=== PATIENT | female | born 1985 | race Caucasian/White ===

== ENCOUNTER 2021-01-06 16:22 | Outpatient (REF) | payer BC, SELFPAY ==
[2021-01-06 20:43] LABS: Abs Immature Grans 0.04 10^3/uL (0.0-0.06); Absolute Basophil Count 0.03 10^3/uL (0.0-0.2); Absolute Eosinophil Count 0.06 10^3/uL (0.0-0.7); Absolute Lymphocyte Count 0.91 10^3/uL (1.2-3.4); Absolute Monocyte Count 0.82 10^3/uL (0.1-0.8); Absolute Neutrophil Count 10.81 10^3/uL (1.2-6.7); Basophils % 0.2; Eosinophils % 0.5; HCT 36.9 % (36.0-46.0); HGB 12.3 g/dL (11.2-15.7); Immature Grans % 0.3; Lymphocytes % 7.2; MCH 30.8 pg (27.0-33.0); MCHC 33.3 % (32.0-36.0); MCV 92.3 fL (80-95); MPV 12.2 fL (8.0-11.0); Monocytes % 6.5; Neutrophils % 85.3; Nucleated RBC 0 %; Platelet Count 201 10^3/uL (130-400); RDW-SD 43.9 fL; WBC 12.67 10^3/uL (4.4-10.8)
[2021-01-06 20:48] LABS: ESR 38 mm/hr (0-20)
[2021-01-06 21:04] LABS: ALT 18 U/L (14-59); AST 11 U/L (15-37); Albumin 3.6 g/dL (3.4-5.0); Alkaline Phosphatase 76 U/L (46-116); Anion Gap 8.3 mmol/L (3-11); BUN 13 mg/dL (7-18); Bilirubin, Total 0.6 mg/dL (0.2-1.0); CO2 27.7 mmol/L (21.0-32.0); CREATININE 0.8 mg/dL (0.55-1.02); Calcium 9.5 mg/dL (8.5-10.1); Chloride 102 mmol/L (98-107); Glucose 108 mg/dL (74-106); Potassium 4.3 mmol/L (3.5-5.1); Sodium 138 mmol/L (136-145); Total Protein 7.6 g/dL (6.4-8.2)
== END 2021-01-06 16:23 | disposition home or self-care (01) ==
LOC: LBN 16:22
PROVIDERS: Visit Provider Family Medicine
DX: R19.7 Diarrhea, unspecified (principal); A68.9 Relapsing fever, unspecified
CPT/HCPCS: 80053; 85652; 85025

== ENCOUNTER 2021-04-27 03:33 | Outpatient (CLI) | payer BC, SELFPAY ==
[2021-04-27 17:30] LABS: Abs Immature Grans 0.02 10^3/uL (0.0-0.06); Absolute Basophil Count 0.03 10^3/uL (0.0-0.2); Absolute Eosinophil Count 0.12 10^3/uL (0.0-0.7); Absolute Lymphocyte Count 2.63 10^3/uL (1.2-3.4); Absolute Monocyte Count 0.52 10^3/uL (0.1-0.8); Absolute Neutrophil Count 6.68 10^3/uL (1.2-6.7); Basophils % 0.3; Eosinophils % 1.2; HCT 43.2 % (36.0-46.0); HGB 14.9 g/dL (11.2-15.7); Immature Grans % 0.2; Lymphocytes % 26.3; MCH 31.2 pg (27.0-33.0); MCHC 34.5 % (32.0-36.0); MCV 90.4 fL (80-95); MPV 10.6 fL (8.0-11.0); Monocytes % 5.2; Neutrophils % 66.8; Nucleated RBC 0 %; Platelet Count 254 10^3/uL (130-400); RBC 4.78 10^6/uL (3.93-5.22); RDW 12.6 % (11.7-14.6); RDW-SD 41.8 fL
[2021-04-27 19:53] LABS: ALT 22 U/L (14-59); AST 13 U/L (15-37); Albumin 4.2 g/dL (3.4-5.0); Alkaline Phosphatase 90 U/L (46-116); Anion Gap 11.2 mmol/L (3-11); BUN 14 mg/dL (7-18); Bilirubin, Total 0.6 mg/dL (0.2-1.0); CO2 27.8 mmol/L (21.0-32.0); CREATININE 0.8 mg/dL (0.55-1.02); Calcium 9.5 mg/dL (8.5-10.1); Chloride 102 mmol/L (98-107); Glucose 110 mg/dL (74-106); Potassium 3.5 mmol/L (3.5-5.1); Sodium 141 mmol/L (136-145); TSH 1.82 uIU/mL (0.36-3.74); Total Protein 7.7 g/dL (6.4-8.2)
== END 2021-04-27 03:34 | disposition home or self-care (01) ==
LOC: LBO 03:33
PROVIDERS: Visit Provider Naturopath
DX: C56.9 Malignant neoplasm of unspecified ovary (principal)
CPT/HCPCS: 36415; 80053; 84443; 85025

== ENCOUNTER 2022-08-04 00:18 | Outpatient (CLI) | payer BC, MEDICAID, SELFPAY ==
--- NOTE | 2022-08-04 13:45 | DI.MRI_ITS ---
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 CONTRAST MATERIAL: IV Contrast: 20 mL of Dotarem contrast administered. FINDINGS: Liver: Unremarkable. Pancreas: Unremarkable. Gallbladder and Bile Ducts: Unremarkable. Adrenals: Unremarkable. Kidneys: Unremarkable. Spleen: There again seen several well-circumscribed T2 hyperintense lesions in the spleen which are l ikely cysts. Bowel: There is diverticulosis in the colon. Aorta: Unremarkable. Soft Tissues: Since the prior examination the patient appears of undergone prior anterior abdominal w all surgery with resection of the right rectus abdominus muscle and intramuscular mass. There is res ultant laxity of the right anterior abdominal wall. There is bowel seen within the anterior abdomina l wall bulge but there is no evidence of bowel obstruction. There is a 0.6 cm round enhancing nodule posterior to the left rectus abdominus muscle. It is in the similar area to the 2nd lesion seen on the MRI from 10/14/2021 although it is decreased in size. This may represent recurrent or residual di sease. No other suspicious enhancing lesions are identified. Bone: Unremarkable. Lymph Nodes: Unremarkable. IMPRESSION: 1. Interval right rectus abdominus muscle/mass resection. No evidence of a recurrent mass in the reg ion. 2. 0.6 cm round enhancing nodule posterior to the left rectus abdominus muscle. (Series [id number], image 63). This may represent residual or recurrent disease stemming from the 2nd lesions seen in September 2408 16. 3. Stable splenic cysts and colonic diverticulosis. DATA REPOSITORY:
[2022-08-04 14:12] LABS: Abs Immature Grans 0.02 10^3/uL (0.0-0.06); Absolute Basophil Count 0.04 10^3/uL (0.0-0.2); Absolute Eosinophil Count 0.12 10^3/uL (0.0-0.7); Absolute Lymphocyte Count 1.95 10^3/uL (1.2-3.4); Absolute Neutrophil Count 5.69 10^3/uL (1.2-6.7); Basophils % 0.5; Eosinophils % 1.5; HCT 41.5 % (36.0-46.0); Immature Grans % 0.2; Lymphocytes % 23.7; MCHC 33.7 % (32.0-36.0); MCV 92 fL (80-95); Monocytes % 4.9; Neutrophils % 69.2; Platelet Count 228 10^3/uL (130-400); RBC 4.51 10^6/uL (3.93-5.22); RDW 12.9 % (11.7-14.6); RDW-SD 43.6 fL; WBC 8.22 10^3/uL (4.4-10.8)
[2022-08-04 14:26] LABS: ALT 21 U/L (14-59); AST 21 U/L (15-37); Alkaline Phosphatase 90 U/L (46-116); Anion Gap 8.8 mmol/L (3-11); BUN 13 mg/dL (7-18); Bilirubin, Total 0.8 mg/dL (0.2-1.0); CO2 27.2 mmol/L (21.0-32.0); CREATININE 0.9 mg/dL (0.55-1.02); Calcium 9.1 mg/dL (8.5-10.1); Chloride 105 mmol/L (98-107); Estimated GFR 84.44 (mL/min/1.73m2); Glucose 84 mg/dL (74-106); Potassium 3.6 mmol/L (3.5-5.1); Sodium 141 mmol/L (136-145); Total Protein 7.4 g/dL (6.4-8.2)
[2022-08-04] MEDS: Gadoterate meglumine 20 ML VIAL IVP (15:45)
[2022-08-04] MEDS: Normal Saline Flush 10 ML SYR IVP (15:49)
== END 2022-08-04 00:38 ==
PROVIDERS: PCP Naturopath; Visit Provider Internal Medicine Hematology & Oncology
DX: D48.1 Neoplasm of uncertain behavior of connective and other soft tissue (principal); N80.9 Endometriosis, unspecified; K57.30 Diverticulosis of large intestine without perforation or abscess without bleeding
CPT/HCPCS: 74183; 80053; 85025

== ENCOUNTER 2023-09-26 05:11 | Outpatient (CLI) | payer BC, MEDICAID, SELFPAY ==
[2023-09-26 12:59] LABS: Hemoglobin A1C 4.9 % (<5.7)
[2023-09-26 13:17] LABS: Vitamin D 25 Total 24.2 ng/mL (30-100)
[2023-09-26 13:23] LABS: ALT 18 U/L (14-59); AST 14 U/L (15-37); Albumin 3.7 g/dL (3.4-5.0); Alkaline Phosphatase 87 U/L (46-116); Anion Gap 10.7 mmol/L (3-11); BUN 14 mg/dL (7-18); CO2 27.3 mmol/L (21.0-32.0); CREATININE 0.8 mg/dL (0.55-1.02); Calcium 8.9 mg/dL (8.5-10.1); Calculated LDL 127 mg/dL (<100); Chloride 105 mmol/L (98-107); Cholesterol 203 mg/dL (<200); Estimated GFR 96.66 (mL/min/1.73m2); Glucose 83 mg/dL (74-106); HDL Cholesterol 56 mg/dL (40-60); Potassium 4.1 mmol/L (3.5-5.1); Sodium 143 mmol/L (136-145); TSH 1.37 uIU/Ml (0.36-3.74); Total Protein 7.3 g/dL (6.4-8.2); Triglyceride 101 mg/dL (<150); Vitamin B12 222 pg/mL (193-986)
[2023-09-26 13:34] LABS: Uric Acid 3.1 mg/dL (2.6-6.0)
[2023-10-01 12:12] LABS: Insulin, Free 12 mcIU/mL (3 - 25); Insulin, Total 13 mcIU/mL (3 - 25)
== END 2023-09-26 05:12 | disposition home or self-care (01) ==
LOC: LOS 05:11
PROVIDERS: PCP Naturopath; Visit Provider Family Medicine
DX: E66.01 Morbid (severe) obesity due to excess calories (principal); Z68.41 Body mass index [BMI] 40.0-44.9, adult
CPT/HCPCS: 36415; 80053; 80061; 82306; 83525; 83527; 82607; 83036; 84443; 84550